=== PATIENT | male | born 1960 | race Caucasian/White ===

== ENCOUNTER 2020-05-25 21:24 | Emergency (ER) | payer OTHER ==
[~2020-05-25] VITALS: Ht 175.3 cm; Wt 70.3 kg
[2020-05-25 21:36] VITALS: BP_SYST 161
--- NOTE | 2020-05-25 21:44 | NUR ---
Placed in room 03 . Placed on cardiac nurse specialist, blood pressure machine and pulse oximeter. To gown for exam. Side rails up. Report given to YVROSE Atkins
[2020-05-25] MEDS ORDERED: ASPIRIN 81 MG TAB.CHEW PO ONE (21:45)
--- NOTE | 2020-05-25 21:55 | NUR ---
Received patient to ER w/ c/o palpitations and numbness to right arm. Denies any symptoms at this time. 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 Will observe patient for any adverse reaction. Bed to low position sr up, continue to monitor. Patient resting quietly. No acute distress noted. Vital signs within normal range.
[2020-05-25] MEDS ORDERED: ASPIRIN 81 MG TAB.CHEW ONE (22:08)
[2020-05-25 22:19] LABS: BASOPHILS % (AUTO) 0.7 % (0.0-2.0); EOSINOPHILS # (AUTO) 0.2 K/uL (0.0-0.4); EOSINOPHILS % (AUTO) 3.2 % (0.0-4.0); HEMATOCRIT 42.1 % (36-54); HEMOGLOBIN 14.6 g/dL (14.0-18.0); LYMPHOCYTES # (AUTO) 1.9 K/uL (1.0-5.5); LYMPHOCYTES % (AUTO) 28.3 % (20.5-51.5); MEAN CORPUSCULAR HEMOGLOBIN 32 pg (27-31); MEAN CORPUSCULAR HGB CONC 35 % (32-36); MEAN CORPUSCULAR VOLUME 92 fL (79.0-98.0); MONOCYTES # (AUTO) 0.4 K/uL (0.0-1.0); MONOCYTES % (AUTO) 6.4 % (1.7-9.3); NEUTROPHILS # (AUTO) 4.1 K/uL (1.8-7.7); NEUTROPHILS % (AUTO) 61.4 % (40.0-70.0); PLATELET COUNT (AUTO) 315 K/uL (130-430); RED BLOOD CELL COUNT(AUTO) 4.56 MIL/uL (4.2-6.2); RED CELL DISTRIBUTION WIDTH 12.5 % (9.0-15.0); WHITE BLOOD COUNT (AUTO) 6.7 K/uL (4.8-10.8)
[2020-05-25 22:43] LABS: CALCIUM 8.6 mg/dL (8.4-11.0); CREATININE 1.13 mg/dL (0.55-1.30); POTASSIUM 4.6 mmol/L (3.5-5.1)
[2020-05-25 22:45] LABS: PROTHROMBIN TIME 10.1 SECS (9.5-12.5)
[2020-05-25 22:57] LABS: ALBUMIN 4.1 g/dL (3.4-4.8); THYROID STIMULATING HORMONE 0.51 uIu/mL (0.36-3.74); TOTAL BILIRUBIN 0.5 mg/dL (0.0-1.0)
--- NOTE | 2020-05-25 23:55 | NUR ---
Patient resting quietly. No acute distress noted. Vital signs within normal range.
[2020-05-26 00:14] LABS: BILIRUBIN,URINE NEGATIVE (NEGATIVE); BLOOD, URINE NEGATIVE (NEGATIVE); CLARITY/URINE CLEAR (CLEAR); COLOR,URINE YELLOW (YELLOW); GLUCOSE,URINE NEGATIVE (NEGATIVE); KETONES,URINE 1+ (NEGATIVE); LEUKOCYTE ESTERASE ,URINE NEGATIVE (NEGATIVE); NITRITE, URINE NEGATIVE (NEGATIVE); PROTEIN URINE TRACE (NEGATIVE); UROBILINOGEN,URINE 0.2 (0.2-1.0)
--- NOTE | 2020-05-26 02:19 | NUR ---
Patient given written and verbal discharge instructions and verbalizes understanding. ER MD discussed with patient the results and treatment provided. Patient in stable condition. ID arm band removed. IV catheter removed intact and dressing applied, no active bleeding. Rx of given. Patient educated on pain management and to follow up with PMD. Pain Scale . Opportunity for questions provided and answered. Medication side effect fact sheet provided.
[2020-05-26 02:20] VITALS: BP_SYST 127
== END 2020-05-26 02:20 | disposition home or self-care (01) ==
LOC: SED 21:24
DX: R00.2 Palpitations (principal); Z88.6 Allergy status to analgesic agent
CPT/HCPCS: 36415; 71045; 80053; 81003; 82550-TC; 83880; 84443-TC; 84484; 85025; 85379; 85610-TC; 93005; 99285